=== PATIENT | male | born 1995 | race Native Hawaiian/Other Pacific Islander ===

== ENCOUNTER 2018-02-21 17:16 | Emergency (ER) | payer MEDICAID, OTHER ==
[2018-02-21] MEDS ORDERED: DEXAMETHASONE 10 MG/ML VIAL PO STA (17:35)
--- NOTE | 2018-02-21 17:37 | ED Physician Documentation ---
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 Today he was working in the warehouse again and he works 12 hour shifts from 5 PM to 5 AM and at about midnight he was just bending over a box and had a sudden sharp pain in the middle of his back and he has had pain in his back since then. He does not have any numbness or tingling denies any saddle saddle anesthesia or change in his bowel or bladder.) Similar symptoms before: Has not had sx before Recently seen: Not recently seen - Additional information Additional information: 22-year-old male with acute lumbar spasm has some improvement with use of Tylenol but had a hard time getting up this afternoon getting ready to go to work. Review of Systems Constitutional: denies: Fever Eyes: denies: Decreased vision Ears: denies: Ear pain Nose: denies: Congestion Throat: denies: Sore throat Cardiac: denies: Chest pain / pressure Respiratory: denies: Dyspnea, Cough GI: denies: Abdominal Pain, Nausea, Vomiting : denies: Dysuria PD PAST MEDICAL HISTORY - Past Surgical History Past Surgical History: No - Present Medications Home Medications: Ambulatory Orders Medication Instructions Recorded Confirmed Cyclobenzaprine [Flexeril] 10 mg PO TID PRN #20 tablet 02/21/18 HYDROcod/ACETAM 5/325 [[place] 5/325] 1 - 2 ea PO Q6H PRN #15 tablet 02/21/18 - Allergies Allergies/Adverse Reactions: Allergies Allergy/AdvReac Type Severity Reaction Status Date / Time No Known Drug Allergies Allergy Verified 02/21/18 17:20 - Social History Does the pt smoke?: Yes Smoking Status: Current every day smoker Does the pt drink ETOH?: No Does the pt have substance abuse?: No - Immunizations Immunizations are current?: Yes PD ED PE NORMAL - Vitals Vital signs reviewed: Yes (hypertensive mild ) - General General: Alert and oriented X 3, No acute distress, Well developed/nourished - HEENT HEENT: Atraumatic, PERRL, EOMI - Neck Neck: Supple, no meningeal sign - Respiratory Respiratory: No respiratory distress - Back Back: No CVA TTP, No spinal TTP, Other (There is tenderness to tense paraspinous muscles of the mid and lower lumbar spine. ) - Derm Derm: Normal color, Warm and dry, No rash - Extremities Extremities: No deformity, No edema - Neuro Neuro: Alert and oriented X 3, kitchen porter 2-12 intact, No motor deficit, No sensory deficit, Normal speech Eye Opening: Spontaneous Motor: Obeys Commands Verbal: Oriented GCS Score: 15 - Psych Psych: Normal mood, Normal affect Results - Vitals Vitals: Vital Signs - 24 hr 02/21/18 17:18 Temperature 36.3 C L Heart Rate 62 Respiratory 16 Rate Blood Pressure 145/65 H O2 Saturation 98 Oxygen O2 Source Room air PD MEDICAL DECISION MAKING - ED course Complexity details: reviewed results, re-evaluated patient, considered differential, d/w patient, d/w family ED course: 22-year-old male lumbar muscle spasm is administered dexamethasone 10 mg orally and we will place on some pain medication muscle relaxant and off for 2 days. I did discuss with the patient rest periods for regeneration of his muscles when he is doing repetitive tasks for extended periods of time. - Sepsis Event Vital Signs: Vital Signs - 24 hr 02/21/18 17:18 Temperature 36.3 C L Heart Rate 62 Respiratory 16 Rate Blood Pressure 145/65 H O2 Saturation 98 Oxygen O2 Source Room air Departure - Departure Disposition: 01 Home, Self Care Clinical Impression: Acute lumbar myofascial strain Qualifiers: Encounter type: initial encounter Qualified Code(s): S39.012A - Strain of muscle, fascia and tendon of lower back, initial encounter Condition: Stable Instructions: ED Sprain Strain Lumbar Follow-Up: [facility] [Provider Group] Prescriptions: Cyclobenzaprine [Flexeril] 10 mg PO TID PRN #20 tablet PRN Reason: Spasms HYDROcod/ACETAM 5/325 [[place] 5/325] 1 - 2 ea PO Q6H PRN #15 tablet PRN Reason: Pain Forms: Activity restrictions
[2018-02-21] MEDS ORDERED: CHERRY SYRUP 10 ML UDC PO ONE (17:54)
[2018-02-21 18:12] VITALS: BP 138/66
== END 2018-02-21 18:00 | disposition home or self-care (01) ==
LOC: ED 17:16
DX: S39.012A Strain of muscle, fascia and tendon of lower back, initial encounter (principal); X50.3XXA Overexertion from repetitive movements, initial encounter; Y92.59 Other trade areas as the place of occurrence of the external cause; Y99.0 Civilian activity done for income or pay; F17.200 Nicotine dependence, unspecified, uncomplicated
CPT/HCPCS: 99283; A9270

== ENCOUNTER 2018-03-27 18:04 | Emergency (ER) | payer SELFPAY ==
[2018-03-27] MEDS ORDERED: IBUPROFEN 600 MG TABLET PO STA (20:30)
--- NOTE | 2018-03-27 21:00 | ED Physician Documentation ---
History of Present Illness - Stated complaint Stated Complaint: HEADACHE/RT SHOULDER/ANKLE PX - Chief complaint Chief Complaint: General - History obtained from History obtained from: Patient - History of Present Illness Timing: Today Pain level now: 6 Improved by: no ameliorating factors Worsened by: no exacerbating factors - Additonal information Additional information: c/o generalized headache since this afternoon. Had nausea and emesis earlier today, but resolved. His brother is also registered in ED at this time with similar symptoms and sore throat. Patient's other brother was T+R 2 days ago from this ED for similar symptoms with sore throat, no specific diagnosis. Note that this patient (Henrry Silveira) denies sore throat. Review of Systems Constitutional: denies: Fever, Chills, Sweats Throat: reports: Sore throat Respiratory: denies: Dyspnea, Cough GI: reports: Nausea (resolved), Vomiting (resolved). denies: Abdominal Pain Skin: denies: Rash Neurologic: reports: Headache. denies: Generalized weakness, Focal weakness, Numbness, Confused, Altered mental status, Head injury PD PAST MEDICAL HISTORY - Past Medical History Past Medical History: No - Past Surgical History Past Surgical History: No - Present Medications Home Medications: Ambulatory Orders Medication Instructions Recorded Confirmed Cyclobenzaprine [Flexeril] 10 mg PO TID PRN #20 tablet 02/21/18 HYDROcod/ACETAM 5/325 [[place] 5/325] 1 - 2 ea PO Q6H PRN #15 tablet 02/21/18 - Allergies Allergies/Adverse Reactions: Allergies Allergy/AdvReac Type Severity Reaction Status Date / Time No Known Drug Allergies Allergy Verified 02/21/18 17:20 - Social History Does the pt smoke?: Yes Smoking Status: Current every day smoker Does the pt drink ETOH?: No Does the pt have substance abuse?: No - Immunizations Immunizations are current?: Yes PD ED PE NORMAL - Vitals Vital signs reviewed: Yes - General General: Alert and oriented X 3, No acute distress, Well developed/nourished - HEENT HEENT: PERRL, EOMI, Moist mucous membranes, Pharynx benign - Neck Neck: Supple, no meningeal sign - Respiratory Respiratory: No respiratory distress, Clear bilaterally - Neuro Neuro: Alert and oriented X 3 Eye Opening: Spontaneous Motor: Obeys Commands Verbal: Oriented GCS Score: 15 Results - Vitals Vitals: Vital Signs - 24 hr 03/27/18 03/27/18 03/27/18 18:23 19:36 22:00 Temperature 36.3 C L 36.3 C L 36.6 C Heart Rate 72 69 70 Respiratory 12 16 16 Rate Blood Pressure 146/83 H 145/66 H 135/82 H O2 Saturation 98 98 99 Oxygen O2 Source Room air PD MEDICAL DECISION MAKING - ED course Complexity details: considered differential, d/w patient, d/w family ED course: appears comfortable/NAD, no neurologic c/o except mild, generalized RAMOS. On reevaluation after ibuprofen, reports resolution of headache. - Sepsis Event Vital Signs: Vital Signs - 24 hr 03/27/18 03/27/18 03/27/18 18:23 19:36 22:00 Temperature 36.3 C L 36.3 C L 36.6 C Heart Rate 72 69 70 Respiratory 12 16 16 Rate Blood Pressure 146/83 H 145/66 H 135/82 H O2 Saturation 98 98 99 Oxygen O2 Source Room air Departure - Departure Disposition: 01 Home, Self Care Clinical Impression: Headache Condition: Good Instructions: ED Cephalgia Unspecified Forms: Activity restrictions Discharge Date/Time: 03/27/18 22:08
[2018-03-27 22:02] VITALS: BP 135/82
== END 2018-03-27 22:08 | disposition home or self-care (01) ==
LOC: ED 18:04
DX: R51 Headache (principal); R11.2 Nausea with vomiting, unspecified
CPT/HCPCS: 99283; A9270

== ENCOUNTER 2018-07-31 13:26 | Emergency (ER) | payer SELFPAY ==
[2018-07-31 13:58] VITALS: BP 142/83
--- NOTE | 2018-07-31 15:54 | ED Physician Documentation ---
PD HPI URI - Stated complaint Stated Complaint: CHEST DISCOMFORT/RAMOS/COUGH/CONGESTION - Chief complaint Chief Complaint: General - History obtained from History obtained from: Patient - History of Present Illness Timing - onset: How many weeks ago (2) Timing duration: Weeks (2) Timing details: Gradual onset, Still present (worse with productive cough the past few days.) Associated symptoms: Nasal congestion, Productive cough, Dyspnea. No: Fever, Chills, Hemoptysis, NVD Contributing factors: No: Sick contact, Immunocompromised Improves by: No: Medication (OTC meds for cough) Worsened by: Activity, Breathing, Other (coughing) Recently seen: Not recently seen Review of Systems Constitutional: reports: Fever, Chills, Myalgias Nose: reports: Rhinorrhea / runny nose, Congestion Throat: denies: Oral lesions / sores, Sore throat Respiratory: reports: Dyspnea, Cough, Wheezing GI: denies: Nausea, Vomiting, Diarrhea Skin: denies: Rash, Lesions PD PAST MEDICAL HISTORY - Past Medical History Cardiovascular: None Respiratory: None Neuro: None Endocrine/Autoimmune: None - Past Surgical History Past Surgical History: No - Present Medications Home Medications: Ambulatory Orders Medication Instructions Recorded Confirmed Albuterol Sulf [Ventolin Hfa 2 - 3 puffs INH Q4HR PRN #1 inhaler 07/31/18 Inhaler] Benzonatate [Tessalon Perle] 100 - 200 mg PO TID PRN #30 capsule 07/31/18 Dexamethasone [Decadron] 4 mg PO DAILY #5 tablet 07/31/18 Doxycycline Hyclate 100 mg PO BID #15 capsule 07/31/18 - Allergies Allergies/Adverse Reactions: Allergies Allergy/AdvReac Type Severity Reaction Status Date / Time No Known Drug Allergies Allergy Verified 02/21/18 17:20 - Social History Does the pt smoke?: Yes Smoking Status: Current every day smoker Does the pt drink ETOH?: No Does the pt have substance abuse?: No - Immunizations Immunizations are current?: Yes PD ED PE NORMAL - Vitals Vital signs reviewed: Yes - General General: Alert and oriented X 3, Well developed/nourished - HEENT HEENT: Ears normal, Pharynx benign - Neck Neck: Supple, no meningeal sign, No adenopathy - Cardiac Cardiac: RRR, No murmur - Respiratory Respiratory: Clear bilaterally - Abdomen Abdomen: Soft, Non tender Results - Vitals Vitals: Oxygen O2 Source Room air PD MEDICAL DECISION MAKING - ED course Complexity details: reviewed results, considered differential, d/w patient Departure - Departure Disposition: 01 Home, Self Care Clinical Impression: Upper respiratory infection Qualifiers: URI type: unspecified URI Qualified Code(s): J06.9 - Acute upper respiratory infection, unspecified Bronchitis, acute Qualifiers: Bronchitis organism: unspecified organism Qualified Code(s): J20.9 - Acute bronchitis, unspecified Condition: Stable Record reviewed to determine appropriate education?: Yes Instructions: ED Upper Resp Infec Abx Tx Prescriptions: Albuterol Sulf [Ventolin Hfa Inhaler] 2 - 3 puffs INH Q4HR PRN #1 inhaler PRN Reason: Shortness Of Air/Wheezing Benzonatate [Tessalon Perle] 100 - 200 mg PO TID PRN #30 capsule PRN Reason: Cough Dexamethasone [Decadron] 4 mg PO DAILY #5 tablet Doxycycline Hyclate 100 mg PO BID #15 capsule Comments: Drink lots of fluids. Rest off work for 2 days. Use albuterol inhaler 2-3 puffs 4 times a day for the next week and extra times if needed for wheeze and cough. Decadron steroid for inflammation of the airways daily from 5 more days. Use Tessalon if needed for cough. Doxycycline antibiotic twice daily for a week for potential bacterial component to the infection. Recheck over the next several days or so if not improving well. He may have some persistent cough for 2-3 weeks even after feeling better. Forms: Activity restrictions Discharge Date/Time: 07/31/18 17:04
[2018-07-31] MEDS: BENZONATATE 100 MG CAPSULE PO STA (16:17)
[2018-07-31] MEDS: DEXAMETHASONE 10 MG/ML VIAL PO STA (16:17)
[2018-07-31] MEDS: ALBUTEROL NEB 2.5 MG/3 ML INH STA (16:18)
== END 2018-07-31 17:04 | disposition home or self-care (01) ==
LOC: ED 13:26
DX: J06.9 Acute upper respiratory infection, unspecified (principal); J20.9 Acute bronchitis, unspecified; F17.200 Nicotine dependence, unspecified, uncomplicated
CPT/HCPCS: 94640; 99283

== ENCOUNTER 2018-11-21 11:58 | Emergency (ER) | payer SELFPAY ==
[2018-11-21 12:09] VITALS: BP 137/81
[2018-11-21] MEDS ORDERED: PENICILLIN VK 250 MG TABLET PO STA (12:48)
[2018-11-21] MEDS ORDERED: HYDROcod/ACETAM 5/325 MG TABLET PO STA (12:48)
[2018-11-21] MEDS ORDERED: IBUPROFEN 800 MG TABLET PO STA (12:48)
--- NOTE | 2018-11-21 12:50 | ED Physician Documentation ---
PD HPI URI - Stated complaint Stated Complaint: DIZZY/NECK PX/NAUSEA - Chief complaint Chief Complaint: Heent - History obtained from History obtained from: Patient - History of Present Illness Timing - onset: Yesterday (Starting yesterday he developed sore throat, neck pain and body aches as well as fevers and chills. He feels generally weak.) Review of Systems Constitutional: reports: Fever, Chills Ears: denies: Ear pain Nose: denies: Rhinorrhea / runny nose Throat: reports: Sore throat Respiratory: denies: Dyspnea, Cough GI: denies: Nausea, Vomiting, Diarrhea PD PAST MEDICAL HISTORY - Past Medical History Past Medical History: No Cardiovascular: None Respiratory: None Neuro: None Endocrine/Autoimmune: None - Past Surgical History Past Surgical History: No - Present Medications Home Medications: Ambulatory Orders Medication Instructions Recorded Confirmed Hydrocodone/Acetaminophen 1 - 2 each PO Q6H PRN #10 tablet 11/21/18 [Hydrocodon-Acetaminophen 5-325] Ibuprofen [Motrin] 800 mg PO Q8H PRN #30 tablet 11/21/18 Penicillin V Potassium 500 mg PO Q6HR #40 tablet 11/21/18 - Allergies Allergies/Adverse Reactions: Allergies Allergy/AdvReac Type Severity Reaction Status Date / Time No Known Drug Allergies Allergy Verified 11/21/18 12:09 - Social History Does the pt smoke?: Yes Smoking Status: Current every day smoker Does the pt drink ETOH?: No Does the pt have substance abuse?: No - Immunizations Immunizations are current?: Yes - POLST Patient has POLST: No PD ED PE NORMAL - Vitals Vital signs reviewed: Yes - General General: Alert and oriented X 3, No acute distress - HEENT HEENT: Other (Tonsillar pillars are inflamed with some tonsillar exudates but not much swelling. His neck is supple. No adenopathy.) - Neck Neck: Supple, no meningeal sign, No bony TTP - Cardiac Cardiac: RRR, No murmur - Respiratory Respiratory: No respiratory distress, Clear bilaterally - Abdomen Abdomen: Non tender - Derm Derm: No rash - Neuro Neuro: Alert and oriented X 3, Normal speech Results - Vitals Vitals: Vital Signs - 24 hr 11/21/18 12:07 Temperature 36.9 C Heart Rate 118 H Respiratory 4 L Rate Blood Pressure 137/81 H O2 Saturation 96 Oxygen O2 Source Room air - Labs Labs: Laboratory Tests 11/21/18 12:10 Group A Strep Rapid POSITIVE H Departure - Departure Disposition: Home, Self Care Clinical Impression: Strep pharyngitis Condition: Good Record reviewed to determine appropriate education?: Yes Instructions: ED Strep Pharyngitis Conf Prescriptions: Penicillin V Potassium 500 mg PO Q6HR #40 tablet Hydrocodone/Acetaminophen [Hydrocodon-Acetaminophen 5-325] 1 - 2 each PO Q6H PRN #10 tablet PRN Reason: pain Ibuprofen [Motrin] 800 mg PO Q8H PRN #30 tablet PRN Reason: PAIN &/OR FEVER Comments: Follow-up with your doctor on Sunday if not better. Drink plenty of fluids. Do not drink or drive with prescription hydrocodone. Forms: Activity restrictions
== END 2018-11-21 12:59 | disposition home or self-care (01) ==
LOC: ED 11:58
DX: J02.0 Streptococcal pharyngitis (principal); B95.5 Unspecified streptococcus as the cause of diseases classified elsewhere; F17.200 Nicotine dependence, unspecified, uncomplicated
CPT/HCPCS: 87430; 99283; A9270

== ENCOUNTER 2019-04-27 22:42 | Emergency (ER) | payer SELFPAY ==
[2019-04-27 22:55] VITALS: BP 141/84
[2019-04-27] MEDS ORDERED: AMOXICILLIN 250 MG CAPSULE PO STA (23:10)
[2019-04-27] MEDS ORDERED: HYDROcod/ACET 5/325 Prepack 4 PO STA (23:11)
--- NOTE | 2019-04-27 23:14 | ED Physician Documentation ---
PD HPI HEENT - Stated complaint Stated Complaint: TOOTH PX - Chief complaint Chief Complaint: Heent - History obtained from History obtained from: Patient, Family - History of Present Illness Timing - onset: How many days ago (2) Timing - duration: Days (2) Timing - details: Gradual onset, Still present Location: Tooth Improves: Medication Associated symptoms: No: Fever, Congestion, Rhinorrhea, Trismus, Unable to swallow, Swollen nodes, Facial swelling, Headache, Cough Similar symptoms before: Has not had sx before Recently seen: Not recently seen - Additional information Additional information: Previously well 23-year-old male has developed pain in her right lower molar that is worsening over the past 2 days. He has not been able to get relief of this pain with the use of Tylenol. He has his wisdom teeth in place and he has not had these symptoms previously. He has not had fever he has had not had nausea or vomiting. Review of Systems Constitutional: denies: Fever Eyes: denies: Decreased vision Ears: denies: Ear pain Nose: denies: Rhinorrhea / runny nose, Congestion Throat: reports: Dental pain / toothache Respiratory: denies: Cough GI: denies: Vomiting PD PAST MEDICAL HISTORY - Past Medical History Past Medical History: No Cardiovascular: None Respiratory: None Neuro: None Endocrine/Autoimmune: None GI: None : None HEENT: None Psych: None Musculoskeletal: None Derm: None - Past Surgical History Past Surgical History: No - Present Medications Home Medications: Ambulatory Orders Medication Instructions Recorded Confirmed Amoxicillin 875 mg PO BID #14 tablet 04/27/19 Hydrocodone/Acetaminophen 1 - 2 each PO Q6H PRN #14 tablet 04/27/19 [Hydrocodon-Acetaminophen 5-325] - Allergies Allergies/Adverse Reactions: Allergies Allergy/AdvReac Type Severity Reaction Status Date / Time No Known Drug Allergies Allergy Verified 04/27/19 22:47 - Social History Does the pt smoke?: Yes Smoking Status: Current every day smoker Does the pt drink ETOH?: Yes Does the pt have substance abuse?: No - Immunizations Immunizations are current?: Yes - POLST Patient has POLST: No PD ED PE NORMAL - Vitals Vital signs reviewed: Yes (hypertensive ) - General General: Alert and oriented X 3, No acute distress, Well developed/nourished - HEENT HEENT: Atraumatic, PERRL, EOMI, Other (There is a tender right lower wisdom tooth with some central decay without broken tooth. There is no swelling or drainage and there is tenderness. The rest of the teeth look well cared for and straight. There are no missing teeth and there are filled molars. ) - Neck Neck: Supple, no meningeal sign, No bony TTP - Respiratory Respiratory: No respiratory distress - Derm Derm: Normal color, Warm and dry, No rash - Extremities Extremities: No deformity, No edema - Neuro Neuro: Alert and oriented X 3, poultry dresser 2-12 intact, No motor deficit, No sensory deficit, Normal speech Eye Opening: Spontaneous Motor: Obeys Commands Verbal: Oriented GCS Score: 15 - Psych Psych: Normal mood, Normal affect Results - Vitals Vitals: Vital Signs - 24 hr 04/27/19 22:44 Temperature 36.6 C Heart Rate 58 L Respiratory 16 Rate Blood Pressure 141/84 H O2 Saturation 98 Oxygen O2 Source Room air PD MEDICAL DECISION MAKING - ED course Complexity details: considered differential, d/w patient, d/w family ED course: 23 y/o male with a tooth ache with dental caries on a wisdom tooth is administered PO amoxicillin and we will place him on a short course and provide a short course of hydrocodone. Departure - Departure Disposition: 01 Home, Self Care Clinical Impression: Pain, dental Condition: Stable Instructions: ED Tooth Pain Follow-Up: [facility] [Provider Group] Prescriptions: Amoxicillin 875 mg PO BID #14 tablet Hydrocodone/Acetaminophen [Hydrocodon-Acetaminophen 5-325] 1 - 2 each PO Q6H PRN #14 tablet PRN Reason: pain
== END 2019-04-27 23:25 | disposition home or self-care (01) ==
LOC: ED 22:42
DX: K08.89 Other specified disorders of teeth and supporting structures (principal); K02.9 Dental caries, unspecified; F17.200 Nicotine dependence, unspecified, uncomplicated
CPT/HCPCS: 99282; 99284; A9270

== ENCOUNTER 2023-12-04 08:00 | Outpatient (CLI) | payer OTHER ==
--- NOTE | 2023-12-04 16:19 | XRAY Report ---
PROCEDURE: Foot 1-2V RT INDICATIONS: UNSPECIFIED INJURY OF RIGHT FOOT TECHNIQUE: 2 views of the foot were acquired. COMPARISON: None. FINDINGS: Bones: No acute fractures or dislocations. No suspicious bony lesions. Soft tissues: No suspicious soft tissue calcifications. Nonspecific soft tissue edema is seen at the dorsum of the foot. IMPRESSION: No acute osseous abnormality. If there is clinical concern or persistent symptoms, additional imaging such as repeat radiographs or advanced imaging (e.g. CT, MRI) may be helpful for further evaluation. Reviewed by: Ricci Barrow MD on 12/04/2023 4:18 PM PDT Approved by: Ricci Barrow MD on 12/04/2023 4:18 PM PDT Station ID: [id number]
== END 2023-12-04 23:59 | disposition home or self-care (01) ==
LOC: DI.N 08:00
PROVIDERS: ATTEND Specialist
DX: S99.921A Unspecified injury of right foot, initial encounter (principal)

== ENCOUNTER 2024-02-13 14:59 | Outpatient (CLI) | payer OTHER ==
--- NOTE | 2024-02-13 15:36 | Sleep Patient Instructions ---
Sleep Center Visit Summary - Patient Visit Information Reason for Visit: Initial consult for evaluation of sleep disordered breathing and other sleep issues. - Patient Instructions Instructions Attached: Sleep Study Home Monitor Additional Instructions: You will be completing a sleep study, either an in-lab polysomnography (PSG) or home sleep study (HST). You will follow-up in the sleep care office after the sleep study is completed to hear the results and talk about therapy, if needed. You will be called by our office staff to schedule this appointment, but you may contact us with any questions. - Clinic Information Contact: [facility] [address] [place] [address] [email or web address] T: [phone]
--- NOTE | 2024-02-13 15:40 | SLEEP CARE CONSULTATION ---
Information from patient questionnaire entered by Riddhi Zhang. I have reviewed and concur with the information entered by Riddhi Zhang. This document represents the service I personally performed and the decisions made by me, Frances Painter ARNP. History of Present Illness Service Date and Time: 02/13/2024 1459 Reason for Visit: New patient Chief Complaint: reports: Insomnia, Unrefreshed sleep, Snoring, Observed pauses in breathing, Frequent awakenings at night Date of Onset: FOR ABOUT 3YRS Usual bedtime: 7732-0741 Time it takes to fall asleep: 5-10MINS Snores at night: Yes Observed to quit breathing while asleep: Yes Sleeps alone due to snoring: No Number of times waking at night: 1-2 Reasons for waking at night: reports: Snoring, Gasping for air ( is hearing him gasp in sleep too occasionlly), Other (UNKNOWN). denies: Choking Toss, Turn, or Twitch while sleeping: Yes Recalls having dreams: Yes Usually gets out of bed at: 0830 Feels refreshed in the morning: No Morning headache: No Sleepy or fatigued during the day: Yes Ever fallen asleep while driving: No Takes day naps: No Dreams during day naps: No Prior sleep studies: No Additional HPI information: I had the pleasure of seeing KIMMY SIN today regarding the possibility of him having a sleep disorder. His current complaints are frequent night awakenings, observed pauses in breathing, snoring and unrefreshed sleep. He says he is not sleeping well. He has heard from his and her family tell him that he stops breathing at night. He says his legs twitch and his told him to come in for evaluation. He has difficulty going to bed, is not tired until 1-2 AM. He had to get up at 8-9 AM for his day. He does not wake up feeling refreshed. He says he wakes up with bad "cotton mouth". He says he does not take naps because he just stays busy. - Parasomnia Symptoms Ever been unable to move upon waking from sleep: No Walks in sleep: No Talks in sleep: Yes Ever acted out dreams in sleep: No Ever felt weak in the knees when startled or emotional: No Bothered by creepy, crawly, restless sensations in legs: No Problems with memory or concentration: No Subjective Initial [place] Sleepiness Scale score: 4 (02/13/24) Past Medical History Past Medical History: reports: Other (no significant medical history) Social History The patient's occupation is a [employer] Patient is and lives in [place]. Have you smoked in the past 12 months: No Cigarettes per day (20/pack): 20 Years of smokin Quit date: 2019 Smoking Pack Years: 11.0 Alcohol use: Yes Alcohol amount and frequency: 1-2 SPECIAL OCCASSIONS Caffeine use: Yes Caffeine amount and frequency: 1 EVERY OTHER DAY Family History Family history of sleep disordered breathing: No Allergies and Home Medications Known drug allergies: No Drug allergies reviewed: Yes Home medication list reviewed: Yes Allergy and home medication list: Allergies No Known Drug Allergies Allergy (Verified 02/11/24 11:27) Home Medications Medication Instructions Recorded Confirmed Last Taken Type No Known Home Medications 02/13/24 02/13/24 Unknown History Review of Systems Weight gain over past 5 years: 100 Cardiovascular: denies: high blood pressure Respiratory: reports: shortness of breath Gastrointestinal: reports: heartburn Neurological: denies: headaches Psychiatric: reports: claustrophobia. denies: anxiety, depression Ear/Nose/Throat: reports: dry mouth/throat. denies: tonsillectomy Physical Exam Vital signs obtained and entered by: RIDDHI Velazquez MA Blood Pressure: 144/72 (RIGHT ARM) Cuff size: long Heart Rate: 71 O2 Saturation: 98 Height: 6 ft Weight: 395 lb 9.6 oz Body Mass Index: 53.6 BMI Classification: Morbidly Obese Neck circumference: 22 Mouth and throat: narrow oropharynx Soft palate: long Hard palate: normal Uvula: normal Uvula visualization: 0% Mallampati Class IV Tongue: enlarged in size with teeth robertson on lateral edges Tonsils: 2+ Neck: normal w/o lymphadenopathy or thyromegaly Heart: regular rate and rhythm Lungs: clear bilaterally Impression and Plan 1. Suspected Obstructive Sleep Apnea-Hypopnea Syndrome, as suggested by a history of loud and irregular snoring, observed cessation of breath while asleep, gasping or choking in sleep and unrefreshed sleep. Narrow oropharynx and obesity are common predisposing factors for obstructive sleep apnea-hypopnea syndrome. I recommend proceeding to polysomnography to confirm the diagnosis and to assess severity. If the patient has significant sleep disordered breathing, a manual CPAP titration study will also be performed to find the optimal treatment pressure. I informed the patient of what the sleep studies involve and after some discussion, obtained agreement to proceed. The pathophysiology of obst ructive sleep apnea-hypopnea syndrome was discussed with the patient and health risks of cardiovascular and cerebrovascular disease if not treated. Risks of drowsy driving discussed in detail and patient advised to avoid long distance driving and to bleach boiler puller at the first sign of drowsiness. Patient agreed to plan. * Schedule polysomnography * Avoid long distance driving or driving when feeling sleepy. * Avoid alcohol, sedative and muscle relaxant around bedtime. * Attempt to lose weight. * Review instructions provided by trained office staff on how to prepare for the sleep study. * Return for follow-up after sleep study completed. Counseling Topics: Weight loss health impact Plan: PSG/HST and followup Visit Type: In Office Time Spent with Patient (minutes): 30 Provider Statement: I spent 100% of the Face to Face Visit with the patient with greater than 50% spent counseling the patient and coordination of care.
[2024-02-13 15:41] VITALS: BP 144/72; O2SAT 98
== END 2024-02-13 15:00 | disposition home or self-care (01) ==
LOC: SC 14:59
PROVIDERS: ATTEND Nurse Practitioner Family
DX: G47.8 Other sleep disorders (principal); R06.83 Snoring; R06.81 Apnea, not elsewhere classified; E66.01 Morbid (severe) obesity due to excess calories; Z68.43 Body mass index [BMI] 50.0-59.9, adult; Z87.891 Personal history of nicotine dependence
CPT/HCPCS: 99203; 99212